=== PATIENT | female | born 1940 | race Hispanic/Latino ===

== ENCOUNTER 2017-02-09 10:22 | Outpatient (CLI) | payer MEDICARE ==
--- NOTE | 2017-02-10 08:16 | Mammography Report ---
Bilateral digital screening mammography with CAD. History: Status post left mastectomy with TRAM flap reconstruction and implant. This also has a right implant. Findings: Comparison is made to previous studies in 2016, 2015, and 2013. The tissue overlying the right breast implant is primarily adipose tissue with no evidence of mass, distortion, or suspicious calcifications. The left implant appears intact with no significant findings in the overlying soft tissue. Impression: No suspicious findings. BI-RADS code: 2. Recommendation: Annual screening.
== END 2017-02-09 10:23 | disposition home or self-care (01) ==
LOC: MAMMO 10:22
PROVIDERS: ATTEND Internal Medicine Hematology & Oncology
DX: Z12.31 Encounter for screening mammogram for malignant neoplasm of breast (principal); Z90.12 Acquired absence of left breast and nipple; Z98.82 Breast implant status
CPT/HCPCS: 77067; G0202